=== PATIENT | female | born 2005 | race Caucasian/White ===

== ENCOUNTER 2025-08-11 00:33 | Emergency (ER) | payer OTHER ==
[~2025-08-11] VITALS: Ht 162.6 cm; Wt 50.8 kg
[2025-08-11 01:45] VITALS: BP 114/64; TEMP 98.5; O2SAT 99
== END 2025-08-11 01:46 | disposition home or self-care (01) ==
LOC: ER 00:41
DX: S61.012A Laceration without foreign body of left thumb without damage to nail, initial encounter (principal); W25.XXXA Contact with sharp glass, initial encounter; Y93.89 Activity, other specified; Y92.89 Other specified places as the place of occurrence of the external cause; Y99.9 Unspecified external cause status

== ENCOUNTER 2025-08-18 14:24 | Emergency (ER) | payer OTHER ==
[~2025-08-18] VITALS: Ht 162.6 cm; Wt 50.8 kg
[2025-08-18 14:30] VITALS: BP 113/61; TEMP 98.3
[2025-08-18 14:44] VITALS: O2SAT 99
== END 2025-08-18 14:45 | disposition home or self-care (01) ==
LOC: ER 14:25
DX: S61.012D Laceration without foreign body of left thumb without damage to nail, subsequent encounter (principal); W25.XXXD Contact with sharp glass, subsequent encounter